=== PATIENT | male | born 1970 | race Caucasian/White ===

== ENCOUNTER 2017-10-24 10:15 | Inpatient (IN) ==
[2017-10-22 12:25] LABS: Appearance,Urine HAZY; Bacteria,Urine 0 /hpf (0); Bilirubin,Urine NEG (NEG); Calcium Oxalate Crystals,Urine FEW /hpf (0); Color,Urine YELLOW; Glucose,Urine (UA) >=500 mg/dL (NEG); Leukocyte Esterase,Urine NEG /uL (NEG); Mucus,Urine MANY /hpf (0); Nitrate,Urine NEG (NEG); Protein,Urine NEG (NEG); Urine Blood NEG mg/dL (<0.03); Urine RBC < 1 /hpf (0-1); Urine Squamous Epithelial Cell < 1 /hpf (0-4); Urine WBC 2 /hpf (0-4)
[2017-10-22 13:04] LABS: Blood Urea Nitrogen 17 mg/dl (6-20)
[2017-10-22 13:08] LABS: Basophils # (Auto) 0 K/mcL (0.0-0.3); Basophils % (Auto) 0.3 % (0.0-2.0); Eosinophils # (Auto) 0.1 K/mcL (0.0-0.7); Eosinophils % (Auto) 1.6 % (0.0-7.0); Granulocytes % (Auto) 65.1 % (38.0-78.0); Lymphocytes # (Auto) 2.3 K/mcL (1.5-4.8); Mean Cell Volume 87.9 fL (80.0-100.0); Mean Corpuscular HGB Conc 33.2 g/dL (31.0-36.0); Mean Corpuscular Hemoglobin 29.1 pg (26.0-34.0); Monocytes # (Auto) 0.6 K/mcL (0.1-0.9); Platelet Count 322 K/mcL (140-440); RBC 5.27 M/mcL (4.50-5.90); Red Cell Distribution Width 13.8 % (11.5-14.5)
[~2017-10-24 10:15] MED LIST: ACETAMINOPHEN 500 MG TABLET PO SCH; CELECOXIB 200 MG CAPSULE PO SCH; IPRATROPIUM/ALBUTEROL 3 ML AMPUL.NEB NEB PRN; PREGABALIN 75 MG CAPSULE PO SCH; SCOPOLAMINE 1 PATCH PATCH TOPICAL PRN; ceFAZolin 1 GM VIAL IV SCH; oxyCODONE 10 MG TAB.ER.12H PO SCH
[2017-10-24] MEDS ORDERED: KETOROLAC 30 MG, ROPIVACAINE HCL/PF 49.5 ML, EPINEPHrine 0.5 MG, 0.9 % SODIUM CHLORIDE ... IJ ONE (13:46)
[2017-10-24] MEDS ORDERED: PROPOFOL 200 MG/20 ML VIAL IV ONE (14:05)
[2017-10-24] MEDS ORDERED: LIDOCAINE HCL/PF 100 MG/5 ML SYRINGE IV ONE (14:05)
[2017-10-24] MEDS ORDERED: GLYCOPYRROLATE 0.2 MG/ML VIAL IV ONE (14:05)
[2017-10-24] MEDS ORDERED: ONDANSETRON 4 MG/2 ML VIAL IV ONE (14:05)
[2017-10-24] MEDS ORDERED: KETAMINE 100 MG/ML ML IV ONE (14:05)
[2017-10-24] MEDS ORDERED: DEXAMETHASONE 10 MG/ML VIAL IV ONE (14:05)
[2017-10-24] MEDS ORDERED: fentaNYL 250 MCG/5 ML VIAL IV ONE (14:05)
[2017-10-24] MEDS ORDERED: MIDAZOLAM 5 MG/5 ML VIAL IV ONE (14:05)
[2017-10-24] MEDS ORDERED: FLEETS ADULT ENEMA PR PRN (14:09)
[2017-10-24] MEDS ORDERED: ONDANSETRON 4 MG/2 ML VIAL IV PRN ×2 (14:09→14:31)
[2017-10-24] MEDS ORDERED: BENZOCAINE/MENTHOL 1 LOZENGE PO PRN (14:09)
[2017-10-24] MEDS ORDERED: BISACODYL 10 MG SUPP.RECT PR PRN (14:09)
[2017-10-24] MEDS ORDERED: TRANEXAMIC ACID 1,000 MG/10 ML VIAL IV ONE (14:09)
[2017-10-24] MEDS ORDERED: MAGNESIUM HYDROXIDE 30 ML ORAL.SUSP PO PRN (14:09)
[2017-10-24] MEDS ORDERED: POLYETHYLENE GLYCOL 3350 17 GM PACKET PO PRN (14:09)
[2017-10-24] MEDS ORDERED: ACETAMINOPHEN 325 MG TABLET PO PRN (14:09)
--- NOTE | 2017-10-24 14:09 | Brief Operative Note ---
Date of procedure: 10/24/17 Pre-op diagnosis: left knee loosened ligaments Post-op diagnosis: same Procedure: left knee poly liner exchange or one comp revision Grafts/Implants: Yes Anesthesia: GETA Complications: none Surgeon: Bharathi Alonzo [employer] Food Server: Omar Hoffamn Estimated blood loss (cc): 20 Tourniquet Time (Minutes): 22 Specimens Removed/Pathology: none sent Condition: stable Disposition: PACU
[2017-10-24] MEDS ORDERED: ALBUTEROL SULFATE 2.5 MG/3 ML NEBULIZER NEB PRN (14:11)
[2017-10-24] MEDS ORDERED: ALBUTEROL SULFATE 1 PUFF INHALER IH PRN (14:11)
[2017-10-24] MEDS ORDERED: fentaNYL 100 MCG/2 ML VIAL IV PRN (14:31)
[2017-10-24] MEDS ORDERED: FLUMAZENIL 0.1 MG/ML ML IV PRN (14:31)
[2017-10-24] MEDS ORDERED: ACETAMINOPHEN 1,000 MG/100 ML BOTTLE IV ONE (14:31)
[2017-10-24] MEDS ORDERED: IPRATROPIUM/ALBUTEROL 3 ML AMPUL.NEB NEB PRN (14:31)
[2017-10-24] MEDS ORDERED: MEPERIDINE 25 MG/ML SYRINGE IV PRN (14:31)
[2017-10-24] MEDS ORDERED: KETOROLAC 30 MG/ML VIAL IV PRN (14:31)
[2017-10-24] MEDS ORDERED: NALOXONE HCL 0.4 MG/ML VIAL IV PRN (14:31)
[2017-10-24] MEDS ORDERED: diphenhydrAMINE 50 MG/ML VIAL IV PRN (14:31)
[2017-10-24] MEDS ORDERED: LACTATED RINGERS 250 ML IV PRN (14:31)
[2017-10-24] MEDS ORDERED: PROMETHAZINE 25 MG/ML VIAL IV PRN (14:31)
[2017-10-24] MEDS ORDERED: LACTATED RINGERS 1,000 ML IV SCH (14:45)
[2017-10-24] MEDS ORDERED: GENTAMICIN SULFATE 800 MG/20 ML VIAL IR ONE (14:52)
--- NOTE | 2017-10-24 15:21 | Operative Note ---
DATE OF OPERATION: 10/24/2017 PREOPERATIVE DIAGNOSIS: Left knee loosening of the ligaments. POSTOPERATIVE DIAGNOSIS: Left knee loosening of the ligaments. PROCEDURE: Poly liner exchange, revision 1 component access. PROCEDURE: Left knee revision of the poly insert. SURGEON: Bharathi Alonzo MD HEATING WORKER: Omar Hoffman PA-C ANESTHESIA: General LMA anesthesia. COMPLICATIONS: None. DESCRIPTION OF PROCEDURE: The patient was brought to the operating room and put to sleep with general LMA anesthesia. Once asleep, the patient had the left leg sterilely prepped and draped in the usual sterile fashion. Tourniquet was inflated to 250 pounds of pressure. We checked the stability of the knee, there was about 3 mm of play both medially and laterally, both in flexion and extension. This was symmetrical loosening. At this point, we then made a midline incision, a mid vastus approach performed through her prior scar. We then removed the poly liner and trialed a size 13 and then a 16 poly. The 13 still had quite a bit of play, about 1-2 mm of play and then we went to the 16, which had no play either lateral or medially. This had full range of motion. It irrigated very well. We then closed the mid vastus approach after the final implant was placed. Tourniquet was deflated at approximately 18 minutes. We controlled bleeding with the Bovie. Blood loss was less than 20 mL. A post-inject formula was placed in the posterior capsule, medial and lateral gutters. A small synovectomy in the superior and anterior compartment anterolaterally and posterolaterally for any tissues that would rub on any implant. We irrigated thoroughly and then closed the mid vastus approach with #1 Stratafix, 2 sutures. These and closed very nicely. We then closed the skin with 2-0 Vicryl and adhesive closure. The patient tolerated this well without complication. RBH:zoë Job ID: [id number] Doc ID: [id number] Bharathi Alonzo MD
--- NOTE | 2017-10-24 16:13 | XRay Report ---
CLINICAL INFORMATION: Postop total knee prostheses COMPARISON: None. FINDINGS: Total knee prostheses is anatomically aligned. No osseous abnormality. Soft tissue swelling seen as expected IMPRESSION: Negative Interpreted and Authenticated by: Cristobal Bauer 10/24/17
[2017-10-24] MEDS: 0.45 % SODIUM CHLORIDE 1,000 ML IV SCH (16:37)
[2017-10-24] MEDS: HYDROmorphone 2 MG/ML SYRINGE IV PRN ×2 (16:42→23:49)
[2017-10-24] MEDS: glipiZIDE 5 MG TABLET PO SCH (16:47)
[2017-10-24] MEDS: metFORMIN 500 MG TABLET PO SCH (16:47)
[2017-10-24] MEDS: HYDROcodone/APAP 10/325MG TABLET PO PRN ×2 (17:33→23:05)
[2017-10-24] MEDS ORDERED: KETOROLAC 15 MG/ML VIAL IV SCH (18:00)
[2017-10-24] MEDS: DOCUSATE SODIUM 100 MG CAPSULE PO SCH (20:39)
[2017-10-24] MEDS: METOPROLOL TARTRATE 25 MG TABLET PO SCH (20:39)
[2017-10-24] MEDS: FISH OIL 1,000 MG CAPSULE PO SCH (20:39)
[2017-10-24] MEDS: ASPIRIN 325 MG ENTERIC COATED TABLET PO SCH (20:39)
[2017-10-24] MEDS: oxyCODONE 20 MG TAB.ER.12H PO SCH (20:40)
[2017-10-24] MEDS: ceFAZolin 1 GM VIAL IV SCH (20:41)
[2017-10-24] MEDS: 0.9 % SODIUM CHLORIDE 10 ML SYRINGE IV SCH (20:41)
[2017-10-24] MEDS ORDERED: SENNOSIDES 1 TABLET PO SCH (21:00)
[2017-10-24] MEDS ORDERED: ATORVASTATIN 20 MG TABLET PO SCH (21:00)
[2017-10-24] MEDS ORDERED: NORTRIPTYLINE 25 MG CAPSULE PO SCH (21:00)
[2017-10-24] MEDS ORDERED: NON FORMULARY MEDICATION 1 DOSE MISCELL (Cinnamon Bark [Cinnamon] 500 MG) PO SCH (21:00)
[2017-10-24] MEDS ORDERED: NABUMETONE 500 MG TABLET PO SCH (21:00)
[2017-10-24] MEDS ORDERED: TEMAZEPAM 15 MG CAPSULE PO PRN (21:00)
[2017-10-25] MEDS: 0.45 % SODIUM CHLORIDE 1,000 ML IV SCH ×2 (02:21→14:52)
[2017-10-25] MEDS: HYDROcodone/APAP 10/325MG TABLET PO PRN ×3 (02:49→13:21)
[2017-10-25] MEDS: ceFAZolin 1 GM VIAL IV SCH (05:17)
[2017-10-25] MEDS: 0.9 % SODIUM CHLORIDE 10 ML SYRINGE IV SCH ×2 (05:17→14:53)
[2017-10-25] MEDS: glipiZIDE 5 MG TABLET PO SCH (06:51)
--- NOTE | 2017-10-25 07:41 | Orthopedic Progress Note ---
Subjective Patient information: Note initiated : 10/25/17 at 7:41 am Service Date, if different from initiated Date: [] Patient: Rigo Minor 47 y/o M admitted on 10/24/17 for Left Knee Poly Liner Exchange and Excision of Scar. Chief Complaint: [Pt is stable this morning on post operative day 1 without any significant concerns or complaints. Patients vital signs have remained stable. Patients dressing is dry and exhibits a grossly intact neurovascular and neuromotor exam. Patients 10 point ROS is otherwise negative. ] Objective Vital signs: Vital Signs Temp Pulse Resp BP BP Pulse Ox 10/25/17 07:30 97.6 F 76 18 92/50 94 10/25/17 04:01 97.9 F 106 H 20 112/67 96 10/25/17 04:00 96 10/25/17 02:00 94 10/25/17 00:23 94 10/24/17 23:55 97.9 F 74 20 117/73 97 10/24/17 23:00 97 10/24/17 20:00 97.6 F 77 20 105/67 97 10/24/17 19:00 97 10/24/17 17:45 125/78 94 10/24/17 16:45 130/80 96 10/24/17 16:30 128/83 93 10/24/17 16:15 151/79 93 10/24/17 15:56 75 14 122/81 96 10/24/17 15:51 75 11 L 137/83 96 10/24/17 15:45 76 12 127/84 94 10/24/17 15:40 84 8 L 121/78 98 10/24/17 15:35 82 12 120/79 98 10/24/17 15:31 82 12 130/86 98 10/24/17 15:25 82 13 121/81 97 10/24/17 15:18 83 11 L 114/74 98 10/24/17 15:11 98.9 F 84 12 122/71 96 10/24/17 10:31 96.8 F L 18 137/88 100 Intake and Output 10/24/17 10/25/17 10/25/17 21:59 05:59 13:59 Intake Total 3180 / 3180 300 / 300 800 / 800 Output Total 575 / 575 650 / 650 Balance 2605 / 2605 -350 / -350 800 / 800 Intake: IV 1900 / 1900 Lactated Ringers 1,000 ml @ 20 1900 / 1900 mls/hr IV .Q24H GINNY Rx#: [id number] Oral 1280 / 1280 300 / 300 800 / 800 Output: Void Amount 525 / 525 650 / 650 Estimated Blood Loss 50 / 50 Other: Meal Dinner Percent of Meal Consumed 100% Feeding Ability Independent Weight 252 lb Intake & Output: Intake & Output 10/24/17 10/25/17 10/25/17 21:59 05:59 13:59 Intake Total 3180 / 3180 300 / 300 800 / 800 Output Total 575 / 575 650 / 650 Balance 2605 / 2605 -350 / -350 800 / 800 Weight 252 lb Intake: IV 1900 / 1900 Lactated Ringers 1,000 ml @ 20 1900 / 1900 mls/hr IV .Q24H GINNY Rx#: [id number] Oral 1280 / 1280 300 / 300 800 / 800 Output: Void Amount 525 / 525 650 / 650 Estimated Blood Loss 50 / 50 Other: Meal Dinner Percent of Meal Consumed 100% Feeding Ability Independent Incision: Yes healing Incision clean and dry: Yes Dressing: Yes clean, Yes dry Weight bearing status: full Neurological exam IM: Yes motor sensory intact, Yes neurovascular intact Extremities exam IM: Yes Foot pink and warm, Yes neurovascular intact - Labs CBC & BMP: 10/25/17 04:53 10/22/17 10:08 Labs: Orthopedic Labs 10/22/17 10:08 PT 12.6 INR 0.9 APTT 38 H 10/25/17 10/22/17 04:53 10:08 Hgb 15.4 Hct 38.6 L 46.3 Assessment and Plan (1) Status post revision of total knee The patient has been educated regarding dressing care, Physical Therapy recommendations, home exercises, restrictions, and follow up appointments. The patient has had all necessary DME prescribed. The patient has remained stable during their hospital course. The patient was discharge with a stable exam. Status: Acute
--- NOTE | 2017-10-25 07:44 | Discharge Summary ---
Ortho Discharge - TKA - Patient Instructions Diet: Regular Diet Activity: activity as tolerated, weight bearing as tolerated Total Knee Protocol: For Total Knee: Start ROM PATY with stationary bike or rocking chair. Work on gaining full extension of knee. Posterior dislocation precautions provided. Hip abductor strengthening and gait training instructions provided. Apply Cryocuff as instructed. Dressing Care: May shower in 3 days, Aquacel Ag - leave on for 5 days - Problem Maintenance (1) Status post revision of total knee Status: Acute - Follow Up Plan Disposition: Home, Self-Care Prognosis: Good Rehab Potential: Good I certify that the patient requires SNF services: No Overall status at discharge: patient is progressing back to baseline - Orders For Discharge Prescriptions: Aspirin [Ecotrin] 325 mg PO BID #60 tab.ec Docusate Sodium [Colace] 100 mg PO BID #60 cap HYDROcodone/APAP 10/325MG [[place] 10/325Mg] 1 - 2 tab PO Q4HP PRN #75 tab PRN Reason: Pain Level 3-6
[2017-10-25] MEDS: DOCUSATE SODIUM 100 MG CAPSULE PO SCH (08:19)
[2017-10-25] MEDS: oxyCODONE 20 MG TAB.ER.12H PO SCH (08:19)
[2017-10-25] MEDS: metFORMIN 500 MG TABLET PO SCH (08:19)
[2017-10-25] MEDS: FISH OIL 1,000 MG CAPSULE PO SCH (08:20)
[2017-10-25] MEDS: ASPIRIN 325 MG ENTERIC COATED TABLET PO SCH (08:20)
[2017-10-25] MEDS: METOPROLOL TARTRATE 25 MG TABLET PO SCH (08:21)
[2017-10-25] MEDS ORDERED: FENOFIBRATE 43 MG CAPSULE PO SCH (09:00)
[2017-10-25] MEDS ORDERED: ASPIRIN 325 MG TABLET.DR PO SCH (09:00)
[2017-10-25] MEDS ORDERED: CITALOPRAM 20 MG TABLET PO SCH (09:00)
== END 2017-10-25 15:35 | disposition home or self-care (01) | DRG 488 ==
LOC: MEDSUR 10:15
PROVIDERS: ADMIT Orthopaedic Surgery; ATTEND Orthopaedic Surgery